=== PATIENT | female | born 1975 | race Caucasian/White ===

== ENCOUNTER 2018-12-22 22:14 | Observation (INO) | payer OTHER ==
[~2018-12-22] VITALS: Ht 172.7 cm; Wt 61.9 kg
--- NOTE | 2018-12-22 22:29 | NUR ---
PT C/O RLQ ABD PAIN WITH SOME PERIUMBILICAL PAIN WELL. +NAUSEA. PAIN WORSE WITH ANY MOVEMENT. WARM BLANKET GIVEN. CALL LIGHT IN REACH. ERP AT BEDSIDE.
--- NOTE | 2018-12-22 22:45 | NUR ---
IV ACCESS OBTAINED AND LABS DRAWN. PT DECLINES MEDS AT THIS TIME. CALL LIGHT IN REACH AND PT AWARE TO NOTIFY RN IF SHE WANTS MEDS.
[2018-12-22 22:48] LABS: BASOPHILS # (AUTO) 0.01 x10^3/uL (0-0.1); BASOPHILS % (AUTO) 0 % (0-1); EOSINOPHILS % (AUTO) 0 % (1-7); LYMPHOCYTES # (AUTO) 0.85 x10^3/uL (1-3.4); LYMPHOCYTES % (AUTO) 7 % (22-44); MD NO; MEAN CORPUSCULAR HEMOGLOBIN 31.5 pg (27.0-34.8); MEAN CORPUSCULAR HGB CONC 34.1 g/dL (32.4-35.8); MEAN CORPUSCULAR VOLUME 92.5 fL (80-100); MEAN PLATELET VOLUME 7.4 fL (7.4-10.4); MONOCYTES % (AUTO) 7 % (2-9); NEUTROPHILS # (AUTO) 11.18 x10^3/uL (1.8-6.8); NEUTROPHILS % (AUTO) 86 % (42-75); PLATELET COUNT 220 x10^3/uL (130-400); RED BLOOD COUNT 4.46 x10^6/uL (3.82-5.3); RED CELL DISTRIBUTION WIDTH 13.1 % (9.6-15.2)
[2018-12-22 22:59] LABS: ALANINE AMINOTRANSFERASE 16 U/L (12-78); ALBUMIN 3.6 g/dL (3.4-5.0); ANION GAP 8 mmol/L (5-15); CALCIUM 8.7 mg/dL (8.5-10.1); CHLORIDE 107 mmol/L (98-107); CREATININE 0.87 mg/dL (0.55-1.02)
[2018-12-22] MEDS ORDERED: ONDANSETRON 2MG/ML, 2ML IVPush ONE (23:00)
[2018-12-22] MEDS ORDERED: SODIUM CHLORIDE 0.9% 1,000ML IVBOLUS ONE (23:00)
[2018-12-22] MEDS ORDERED: SODIUM CHLORIDE FLUSH 10ML SYR IVF ONE (23:00)
[2018-12-22 23:04] LABS: ALKALINE PHOSPHATASE 62 U/L (45-117); BILIRUBIN,TOTAL 0.6 mg/dL (0.2-1.0); TOTAL PROTEIN 7.8 g/dL (6.4-8.2)
[2018-12-22] MEDS ORDERED: MORPHINE SULFATE 4 MG/ML, 1ML ONE (23:16)
[2018-12-22] MEDS ORDERED: ONDANSETRON 2MG/ML, 2ML ONE (23:16)
[2018-12-22] MEDS: MORPHINE SULFATE 4 MG/ML, 1ML IVPush PRN (23:23)
--- NOTE | 2018-12-22 23:38 | NUR ---
PT C/O INCREASED PAIN. PT MEDICATED PER MAR. IV FLUIDS INFUSING. PT TO CT VIA CLEMENTRPATRICIA.
--- NOTE | 2018-12-23 00:09 | NUR ---
ERP AT BEDSIDE TO RECHECK.
[2018-12-23] MEDS ORDERED: CEFTRIAXONE PMX 1GM/50ML 0 ML ONE (00:15)
[2018-12-23] MEDS ORDERED: MORPHINE SULFATE 4 MG/ML, 1ML ONE (00:15)
[2018-12-23] MEDS ORDERED: CEFOTETAN PMX 1GM/50ML 50 ML ONE (00:17)
[2018-12-23] MEDS: MORPHINE SULFATE 4 MG/ML, 1ML IVPush PRN (00:22)
[2018-12-23] MEDS ORDERED: CEFOTETAN PMX 1GM/50ML 50 ML IV ONE (00:30)
[2018-12-23 01:04] VITALS: BP 124/79
[2018-12-23 01:25] LABS: MICROSCOPIC NOT IND
[2018-12-23 01:27] LABS: CULTURE INDICATED? NO
[2018-12-23] MEDS ORDERED: BUPIVACAINE/PF-EPI 0.5% 1:200K ONE (02:14)
[2018-12-23] MEDS ORDERED: MIDAZOLAM 1 MG/ML, 2ML ONE (02:49)
[2018-12-23] MEDS ORDERED: OMNIPAQUE 350 MG/ML, 100ML BOTTLE ONE (02:49)
[2018-12-23] MEDS ORDERED: FENTANYL PF 250 MCG/5ML ONE (02:50)
[2018-12-23] MEDS ORDERED: NEOSTIGMINE 1 MG/ML, 10ML ONE (02:55)
[2018-12-23] MEDS ORDERED: DEXAMETHASONE 4 MG/ML, 1ML ONE (02:55)
[2018-12-23] MEDS ORDERED: GLYCOPYRROLATE 0.2MG/1ML, 5ML ONE (02:55)
[2018-12-23] MEDS ORDERED: KETOROLAC 30 MG/1 ML ONE (02:55)
[2018-12-23] MEDS ORDERED: PROPOFOL 10 MG/ML, 20ML ONE (02:55)
[2018-12-23] MEDS ORDERED: ROCURONIUM 10MG/ML,5ML ONE (02:55)
[2018-12-23] MEDS ORDERED: BUPIVACAINE/PF-EPI 0.5% 1:200K INFIL ONE (03:17)
[2018-12-23] MEDS ORDERED: HALOPERIDOL 5 MG/ML IV PRN (03:30)
[2018-12-23] MEDS ORDERED: FENTANYL PF 100 MCG/2ML IV PRN (03:30)
[2018-12-23] MEDS ORDERED: OXYcodone 5 MG/5 ML ORAL.SOL UDC PO PRN (03:30)
[2018-12-23] MEDS ORDERED: PROMETHAZINE 25 MG/ML, 1ML IV PRN (03:30)
[2018-12-23] MEDS ORDERED: HYDROmorphone 2 MG/ML, 1ML IVPush PRN (03:30)
[2018-12-23] MEDS ORDERED: ACETAMINOPHEN 325 MG TABLET PO PRN (03:30)
[2018-12-23] MEDS ORDERED: MEPERIDINE/PF 25MG/0.5ML IVPush PRN (03:30)
[2018-12-23] MEDS ORDERED: OXYcodone 5 MG/5 ML ORAL.SOL UDC ONE (03:36)
[2018-12-23] MEDS ORDERED: FENTANYL PF 100 MCG/2ML ONE (03:36)
[2018-12-23] MEDS ORDERED: PIPERACILLIN/TAZO/PMX 4.5GM 100 ML IV ONE (04:00)
[2018-12-23 05:43] LABS: RAPID INFLUENZA A Negative (Negative); RAPID INFLUENZA B Negative (Negative)
[2018-12-23] MEDS ORDERED: ONDANSETRON 2MG/ML, 2ML IVPush PRN (06:30)
[2018-12-23] MEDS ORDERED: MORPHINE SULFATE 4 MG/ML, 1ML IVPush PRN (06:30)
[2018-12-23] MEDS ORDERED: ONDANSETRON ODT 4 MG PO PRN (06:30)
[2018-12-23 07:01] VITALS: BP 106/64
[2018-12-23] MEDS: SODIUM CHLORIDE 0.9% 1,000 ML IV SCH ×2 (08:29→17:30)
[2018-12-23] MEDS: OXYcodone IR 5MG TABLET PO PRN ×2 (08:29→17:33)
[2018-12-23] MEDS ORDERED: PIPERACILLIN/TAZO/PMX 4.5GM 100 ML IVPB ONE (12:00)
[2018-12-23 12:24] VITALS: BP 113/70
[2018-12-23] MEDS ORDERED: AMOXICILLIN/CLAV 500-125MG TABLET PO SCH (16:00)
[2018-12-23] MEDS ORDERED: AMOX1TAB64 PO (17:28)
[2018-12-23] MEDS ORDERED: OXYC5CAP2 PO (17:28)
[2018-12-23 17:29] VITALS: BP 110/72
[2018-12-23] MEDS ORDERED: ACET-76 PO (17:30)
[2018-12-23] MEDS ORDERED: Phenergan PO (17:30)
== END 2018-12-23 18:54 | disposition home or self-care (01) ==
LOC: ED 23:10 → INTOOBSV 12-23 00:29 → EDIP 12-23 00:29 → 4NOR 12-23 00:57
PROVIDERS: ADMIT Surgery; ATTEND Surgery
DX: K35.20 Acute appendicitis with generalized peritonitis, without abscess (principal); J06.9 Acute upper respiratory infection, unspecified; J40 Bronchitis, not specified as acute or chronic
CPT/HCPCS: 36415; 44970; 74177; 80053; 81003; 83690; 84703; 85025; 87400; 88304; 96365; 96367; 96375; 96376; 99284; G0378; J1100; J1885; J2250; J2405; J2543; J2704; J2710; J3010; J3490; J7030; Q9967

== ENCOUNTER 2019-12-19 11:39 | Emergency (ER) | payer OTHER ==
[~2019-12-19] VITALS: Ht 170.2 cm; Wt 62.7 kg
[~2019-12-19 11:39] MED LIST: ACET-76 PO; AMOX1TAB64 PO; CEFD300C37 PO; METR500T PO; OXYC5CAP2 PO; Phenergan PO
[2019-12-19] MEDS ORDERED: ONDANSETRON ODT 4 MG ONE (12:06)
[2019-12-19 12:29] LABS: BASOPHILS # (AUTO) 0.03 x10^3/uL (0-0.1); BASOPHILS % (AUTO) 1 % (0-1); EOSINOPHILS # (AUTO) 0.07 x10^3/uL (0-0.4); EOSINOPHILS % (AUTO) 2 % (1-7); LYMPHOCYTES # (AUTO) 1.74 x10^3/uL (1-3.4); LYMPHOCYTES % (AUTO) 35 % (22-44); MD NO; MEAN CORPUSCULAR HEMOGLOBIN 31.4 pg (27.0-34.8); MEAN CORPUSCULAR HGB CONC 33.9 g/dL (32.4-35.8); MEAN CORPUSCULAR VOLUME 92.6 fL (80-100); MONOCYTES # (AUTO) 0.31 x10^3/uL (0.2-0.8); MONOCYTES % (AUTO) 6 % (2-9); NEUTROPHILS # (AUTO) 2.86 x10^3/uL (1.8-6.8); NEUTROPHILS % (AUTO) 57 % (42-75); PLATELET COUNT 215 x10^3/uL (130-400); RED BLOOD COUNT 4.69 x10^6/uL (3.82-5.3)
[2019-12-19 12:30] LABS: RAPID INFLUENZA A Negative (Negative); RAPID INFLUENZA B Negative (Negative)
[2019-12-19] MEDS ORDERED: ONDANSETRON ODT 4 MG PO ONE (12:30)
[2019-12-19 12:36] LABS: ALBUMIN 4.1 g/dL (3.4-5.0); ANION GAP 12 mmol/L (5-15); CALCIUM 9.1 mg/dL (8.5-10.1); CHLORIDE 109 mmol/L (98-107); CREATININE 1.12 mg/dL (0.55-1.02)
--- NOTE | 2019-12-19 13:11 | NUR ---
PT FEELING BETTER AFTER ZOFRAN GIVEN PREVIOUSLY. PT STILL SLIGHTLY ANXIOUS, XANAX GIVEN PER ERP ORDER. VSS. RECHECK IN 30 MINUTES.
--- NOTE | 2019-12-19 13:40 | NUR ---
FIRST CONTACT. ROB LEIGH IS DISCHARGING THE PT. FOR THE PRIMARY CARE RN BREE. PT. WAS GIVEN DISCHARGE INSTRUCTIONS WITH UNDERSTANDING VERBALIZED ALONG WITH WILLINGNESS TO COMPLY. PT. WAS AMBULATORY TO THE DISCHARGE DESK AND HER STATED HE IS DRIVING. VSS.
[2019-12-19 13:42] VITALS: BP 121/85
== END 2019-12-19 13:44 | disposition home or self-care (01) ==
LOC: ED 12:02
DX: F41.1 Generalized anxiety disorder (principal); R06.4 Hyperventilation
CPT/HCPCS: 36415; 80048; 82040; 85025; 87400; 93005; 99284; Q0162